=== PATIENT | female | born 1940 | race Caucasian/White ===

== ENCOUNTER 2022-06-13 09:05 | Emergency (ER) | payer MEDICARE, BC ==
[~2022-06-13] VITALS: Ht 164.5 cm; Wt 63.2 kg
[2022-06-13 09:25] VITALS: BP 134/46
[2022-06-13] MEDS ORDERED: HYDR-3965 PO (09:54)
== END 2022-06-13 10:45 | disposition home or self-care (01) ==
LOC: ER 09:06
DX: S52.571A Other intraarticular fracture of lower end of right radius, initial encounter for closed fracture (principal); M25.531 Pain in right wrist; Z85.3 Personal history of malignant neoplasm of breast; Z90.710 Acquired absence of both cervix and uterus; Z98.890 Other specified postprocedural states; W01.0XXA Fall on same level from slipping, tripping and stumbling without subsequent striking against object, initial encounter; Y93.89 Activity, other specified; Y92.89 Other specified places as the place of occurrence of the external cause; Y99.8 Other external cause status
CPT/HCPCS: 29125; 73110; 99284; A4565; A6446; A6449